=== PATIENT | female | born 1955 | race Caucasian/White ===

== ENCOUNTER 2017-06-03 12:25 | Outpatient (CLI) ==
--- NOTE | 2017-06-03 13:42 | DEXA ---
EXAM: Bone density HISTORY: Osteoporosis on calcium supplementation, steroids with other arthritides. Patient with hi story of partial hysterectomy. COMPARISON: DEXA 02/12/2012 TECHNIQUE: Digital images of the bilateral hips were provided and calculation of bone density was o btained. FINDINGS: DEXA of the hips was performed and of good quality. Total bone marrow density of 0.868 grams per square centimeter. T score is - 1.1 and Z-score is - 0.5. Prior bone density of 0.892. IMPRESSION: Bone density of the hips demonstrate osteopenia by WHO criteria. Overall bone density h as decreased from prior exam. T score greater than -1 is normal T score -1 to -2.5 is osteopenia T score less than - 2.5 is osteoporosis
--- NOTE | 2017-06-05 08:45 | MAMMO ---
EXAM: Bilateral digital screening mammogram History: Screening. Comparison: Bilateral mammogram 05/26/2013 Findings: MLO and CC views of bilateral breasts demonstrate predominately fatty replaced breast par enchyma. Stable benign bilateral breast calcifications. There are no dominant masses, no suspiciou s microcalcifications and no architectural distortions Impression: Benign stable mammogram. Recommend followup routine screening mammography in 1 year. BIRADS 2
== END 2017-06-03 12:26 | disposition home or self-care (01) ==
LOC: RAD 12:25
PROVIDERS: ATTEND Family Medicine
DX: Z12.31 Encounter for screening mammogram for malignant neoplasm of breast (principal); M81.0 Age-related osteoporosis without current pathological fracture

== ENCOUNTER 2017-06-16 10:42 | Outpatient (CLI) ==
[2017-06-15 18:32] VITALS: BMI 30.7
== END 2017-06-16 10:43 | disposition home or self-care (01) ==
LOC: AMBL 10:42
PROVIDERS: ATTEND Family Medicine
DX: K85.90 Acute pancreatitis without necrosis or infection, unspecified (principal); R00.0 Tachycardia, unspecified

== ENCOUNTER 2017-07-05 12:46 | Outpatient (CLI) ==
[2017-06-15 18:32] VITALS: BMI 30.7
== END 2017-07-05 12:47 | disposition home or self-care (01) ==
LOC: CAR 12:46
PROVIDERS: ATTEND Family Medicine
DX: J96.01 Acute respiratory failure with hypoxia (principal)
CPT/HCPCS: 94761